=== PATIENT | male | born 1975 | race Two or more races ===

== ENCOUNTER 2019-01-25 16:49 | Emergency (ER) | payer MEDICAID, OTHER, SELFPAY ==
[~2019-01-25] VITALS: Ht 165.1 cm; Wt 72.2 kg
[2019-01-25 19:25] VITALS: BP 110/76
== END 2019-01-25 20:11 | disposition home or self-care (01) ==
LOC: ED 20:05
DX: S22.41XA Multiple fractures of ribs, right side, initial encounter for closed fracture (principal); R10.31 Right lower quadrant pain; W01.10XA Fall on same level from slipping, tripping and stumbling with subsequent striking against unspecified object, initial encounter; Y93.89 Activity, other specified; Y92.69 Other specified industrial and construction area as the place of occurrence of the external cause; Y99.0 Civilian activity done for income or pay
CPT/HCPCS: 36415; 71260; 80053; 85025; 99284; Q9967